=== PATIENT | male | born 2005 | race Two or more races ===

== ENCOUNTER 2024-08-09 06:47 | Day surgery (SDC) | payer OTHER ==
[~2024-08-09 06:47] MED LIST: BENZTROPINE ME0.5 MG PO; DEPAKOTE ER250 MG PO; DOXEPIN HC10 MG/1 ML; LAMICTAL150 M1 PO; PROZAC20 MG PO; RISPERDAL2 MG PO; VISTARIL25 MG PO
[2024-08-09] MEDS ORDERED: THROMBIN,HU/FIBRINOGEN/CALCIUM 10 ML SYRINGE TOP ONE (15:00)
[2024-08-09] MEDS ORDERED: METRONIDAZOLE/SODIUM CHLORIDE 500 MG/100 ML PIGGYBACK IV SCH (15:00)
[2024-08-09] MEDS ORDERED: BUPIVACAINE HCL 30 ML VIAL IJ ONE (15:00)
[2024-08-09] MEDS ORDERED: LIDOCAINE HCL 1%/EPINEPHRINE 20ML VIAL IJ ONE (15:00)
[2024-08-09] MEDS ORDERED: CEFTRIAXONE SODIUM 2,000 MG VIAL IV SCH (15:00)
[2024-08-09] MEDS ORDERED: POVIDONE-IODINE 118 ML BOTT TOP ONE (15:00)
[2024-08-09] MEDS ORDERED: CHLORHEXIDINE GLUCONATE 120 ML BOTTLE TOP ONE (15:45)
[2024-08-09] MEDS ORDERED: MORPHINE SULFATE 4 MG/ML VIAL IV ONE (17:35)
== END 2024-08-09 18:25 | disposition home or self-care (01) ==
LOC: CIR.AMB 06:47
PROVIDERS: ATTEND Colon & Rectal Surgery
DX: L05.01 Pilonidal cyst with abscess (principal)

== ENCOUNTER 2024-08-17 14:47 | Emergency (ER) | payer OTHER ==
[~2024-08-17] VITALS: Ht 170.2 cm; Wt 68.0 kg
[2024-08-17 15:56] VITALS: BP 116/78; O2SAT 98
[2024-08-17] MEDS ORDERED: CLINDAMYCIN PHOSPHATE 150 MG/ML (900mg) IV ONE (16:45)
[2024-08-17] MEDS ORDERED: ACETAMINOPHEN 500 MG GEL..CAP PO ONE (16:45)
[2024-08-17] MEDS ORDERED: OxyCODONE HCL/APAP UD (PERCOCET) PO ONE (18:15)
[2024-08-17 18:51] LABS: HEMATOCRIT 38.4 % (39.0-48.0); MEAN CELL VOLUME 89.5 fL (80.0-100.00); MEAN CORPUSCULAR HEMOGLOBIN 30.4 pg (27.00-32.0); MEAN CORPUSCULAR HGB CONC 33.9 g/dl (32.0-36.0); PLATELET COUNT 263 K/uL (150-450); RED BLOOD COUNT 4.29 M/uL (4.00-6.00); RED CELL DISTRIBUTION WIDTH 12.8 % (11.5-14.5)
[2024-08-17 19:07] LABS: INR 1.06; PARTIAL THROMBOPLASTIN TIME 32.4 SECONDS (22.0-34.0); PROTHROMBIN TIME 11.5 SECONDS (9.0-11.5)
[2024-08-17 19:09] LABS: CREATININE SERUM 0.9 mg/dL (0.70-1.30); GFR 107.58; POTASSIUM 3.61 mEq/L (3.5-5.1)
== END 2024-08-17 22:05 | disposition home or self-care (01) ==
LOC: ER 14:49
PROVIDERS: Emergency Medicine
DX: L05.01 Pilonidal cyst with abscess (principal); L03.90 Cellulitis, unspecified; Z20.822 Contact with and (suspected) exposure to COVID-19